=== PATIENT | female | born 1980 | race Caucasian/White ===

== ENCOUNTER 2017-04-28 10:07 | Emergency (ER) | payer SELFPAY ==
--- NOTE | 2017-04-28 11:17 | NUR ---
PT CALLED AT THE LOBBY NO RESPONSE, LEFT WITHOUT BEING SEEN
== END 2017-04-28 11:17 | disposition left against medical advice (07) ==
LOC: MED 10:07
DX: Z53.21 Procedure and treatment not carried out due to patient leaving prior to being seen by health care provider (principal)

== ENCOUNTER 2018-01-12 12:06 | Emergency (ER) | payer SELFPAY ==
[~2018-01-12] VITALS: Ht 165.1 cm; Wt 73.6 kg
[2018-01-12 12:37] VITALS: BP 116/69
--- NOTE | 2018-01-12 12:50 | NUR ---
PATIENT PRESENTS TO ED WITH C/O OF ANAL PAIN 07/22 WITHOUT ANY BLEEDING . PT STATES " I HAD ANAL SEX AND IT STARTED HURTING REALLY BAD" . PATIENT C/O OF NAUSEA AT THE MOMENT ; SKIN IS PINK/WARM/DRY; AAOX4 WITH EVEN AND STEADY GAIT; LUNGS CLEAR BL; HR EVEN AND REGULAR; PT DENIES ANY FEVER, CP, SOB, OR COUGH AT THIS TIME; VSS; PATIENT POSITIONED FOR COMFORT; HOB ELEVATED; BEDRAILS UP X2; BED DOWN. ER MD MADE AWARE OF PT STATUS.
--- NOTE | 2018-01-12 13:56 | NUR ---
patient eloped from er without receiving any further care.
== END 2018-01-12 13:56 | disposition left against medical advice (07) ==
LOC: MED 12:06
DX: K62.89 Other specified diseases of anus and rectum (principal); Z53.21 Procedure and treatment not carried out due to patient leaving prior to being seen by health care provider

== ENCOUNTER 2018-03-21 15:44 | Emergency (ER) | payer MEDICAID ==
[~2018-03-21] VITALS: Ht 170.2 cm; Wt 63.0 kg
[2018-03-21 15:58] VITALS: BP 113/66
--- NOTE | 2018-03-21 18:28 | NUR ---
CALLED TO A BED, NO ANSWER. LWBS
== END 2018-03-21 18:27 | disposition left against medical advice (07) ==
LOC: MED 15:44
DX: M79.641 Pain in right hand (principal); Z53.21 Procedure and treatment not carried out due to patient leaving prior to being seen by health care provider

== ENCOUNTER 2018-03-22 12:37 | Emergency (ER) | payer MEDICAID ==
[~2018-03-22] VITALS: Ht 170.2 cm; Wt 63.5 kg
[2018-03-22 12:54] VITALS: BP 119/83
--- NOTE | 2018-03-22 13:00 | NUR ---
PT AMBULATED TO ER BED 06
[2018-03-22] MEDS ORDERED: BACITRACIN OINT 500 UNITS/GM PKT TP ONE (13:27)
--- NOTE | 2018-03-22 13:33 | NUR ---
Patient discharged with v/s stable. Written and verbal after care instructions given and explained. Patient alert, oriented and verbalized understanding of instructions. Ambulatory with steady gait. All questions addressed prior to discharge. ID band removed. Patient advised to follow up with PMD. Rx of KEFLEX, BACTRIM given. Patient educated on indication of medication including possible reaction and side effects. Opportunity to ask questions provided and answered.
[2018-03-22 13:37] VITALS: BP 123/79
--- NOTE | 2018-03-22 13:37 | NUR ---
patient has been having pain in the thumb for 2 days. pt states that she cut herself peeling copper. she got a piece of metal in her thumb. she was at [facility] and left because they took too long getting her medication. history of mental illness, bipolar, schizophrenia. she strates she is allergic to amocicillin. pt claims she is homeless and lives on the streets. patient has thumb wrapped in gauze.
== END 2018-03-22 13:33 | disposition home or self-care (01) ==
LOC: MED 12:37
DX: S61.011D Laceration without foreign body of right thumb without damage to nail, subsequent encounter (principal); F15.10 Other stimulant abuse, uncomplicated; Z48.01 Encounter for change or removal of surgical wound dressing; Z88.1 Allergy status to other antibiotic agents; X58.XXXD Exposure to other specified factors, subsequent encounter
CPT/HCPCS: 99283

== ENCOUNTER 2018-03-28 02:03 | Emergency (ER) | payer MEDICAID ==
[~2018-03-28] VITALS: Ht 170.2 cm; Wt 67.6 kg
[2018-03-28 02:08] VITALS: BP 123/86
[2018-03-28] MEDS ORDERED: CLINDAMYCIN 600 MG/4 ML VIAL IM ONE (02:25)
[2018-03-28 02:49] VITALS: BP 130/86
== END 2018-03-28 02:49 | disposition home or self-care (01) ==
LOC: MED 02:03
DX: M79.644 Pain in right finger(s) (principal); F15.10 Other stimulant abuse, uncomplicated; Z48.01 Encounter for change or removal of surgical wound dressing; Z88.1 Allergy status to other antibiotic agents
CPT/HCPCS: 96372; 99283; J3490

== ENCOUNTER 2020-08-16 12:56 | Emergency (ER) | payer MEDICAID, OTHER, SELFPAY ==
[~2020-08-16] VITALS: Ht 165.1 cm; Wt 67.6 kg
[2020-08-16 13:05] VITALS: BP 130/67
--- NOTE | 2020-08-16 13:08 | NUR ---
Patient ambulated to bed 2. RN evaluating patient at bedside.
--- NOTE | 2020-08-16 13:14 | NUR ---
40 year old female complains of constipation x months. Pt states that she consistently has feeling of having to go defecate, but unable to and feels blockage. Pt states only small stools come out, has lower abdominal pressure pain. Pt AOx4, breathing even and unlabored, skin warm and dry. bed in lowest position, locked, bed rail upx1. PMH - denies allergies - amoxicillin
--- NOTE | 2020-08-16 13:29 | NUR ---
PT LEFT W/O BEING SEEN. Dr. WONG MADE AWARE.
== END 2020-08-16 13:29 | disposition left against medical advice (07) ==
LOC: MED 12:56
DX: K59.00 Constipation, unspecified (principal); Z53.21 Procedure and treatment not carried out due to patient leaving prior to being seen by health care provider

== ENCOUNTER 2022-10-09 22:01 | Emergency (ER) | payer OTHER ==
[~2022-10-09] VITALS: Ht 170.2 cm; Wt 67.6 kg
[2022-10-09 22:11] VITALS: BP 112/67
--- NOTE | 2022-10-09 22:14 | NUR ---
TO LOBBY A/W BED AMBULATORY
--- NOTE | 2022-10-10 01:05 | NUR ---
Patient being evaluated by physician at bedside.
--- NOTE | 2022-10-10 01:05 | NUR ---
Assumed care of patient. Pt with c/o left eye pain. Noted with redness. States that she had contact lenses in that she left for too long. Addendum: 10/10/22 at 0119 by [email or web address] Pt states that she was able to remove the contacts but feels like theres glass in her eye.
--- NOTE | 2022-10-10 01:07 | NUR ---
ER Dr. Hanson by bedside to evaluate patient
[2022-10-10] MEDS ORDERED: FLUORESCEIN OPTH STRIP 1 MG OP ONE (01:10)
[2022-10-10] MEDS ORDERED: TETRACAINE HCL/PF 0.5% OPTH 4 ML BTL OP ONE (01:10)
--- NOTE | 2022-10-10 02:25 | NUR ---
ERMD at bedside
[2022-10-10] MEDS ORDERED: PROPOFOL 200 MG/20 ML VIAL IV ONE (02:35)
--- NOTE | 2022-10-10 02:58 | NUR ---
pre-procedure protocol. procedure: moderation sedation for removal of foreign body on left eye. * consent obtained via verbal from pt. understands risks and benefits per the dr. * moderate sedation setup done at bedside.
--- NOTE | 2022-10-10 03:01 | NUR ---
Respiratory Therapist at bedside for respiratory intervention.
--- NOTE | 2022-10-10 03:01 | NUR ---
Dr. Kay, Bryson BOOK CUTTER, Silas EMT, and myself at bedside for initiation of moderate sedation. *0302- 70mg propofol IVP given by Dr. Kay *0304- another 70mg propofol IVP given by myself.
[2022-10-10] MEDS ORDERED: ERYT5OIN58 RIGHT EYE (03:09)
[2022-10-10] MEDS ORDERED: IBUP-2213 PO (03:09)
--- NOTE | 2022-10-10 03:30 | NUR ---
Pt alert responsive. No s/s discomfort at this time. VSS.
--- NOTE | 2022-10-10 03:32 | NUR ---
CALLED TO BEDSIDE FOR MODERATE SEDATION. PLACED PT ON O2 AND CO2 MONITORING. PROCEDURE STARTED AT APROMIXATELY 0301. AT APPROXIMATELY 0330, PT WAS AWAKE, ALERT, AND ANSWERING QUESTIONS FROM DOCTOR, RT, AND RN. WILL CONTINUE TO MONITOR PT.
[2022-10-10 04:25] VITALS: BP 119/75
== END 2022-10-10 04:25 | disposition home or self-care (01) ==
LOC: MED 22:01
DX: T15.92XA Foreign body on external eye, part unspecified, left eye, initial encounter (principal); Z88.1 Allergy status to other antibiotic agents; Z79.899 Other long term (current) drug therapy; X58.XXXA Exposure to other specified factors, initial encounter; Y93.89 Activity, other specified; Y92.89 Other specified places as the place of occurrence of the external cause; Y99.8 Other external cause status
CPT/HCPCS: 65205; 94760; 94770; 99291; J2704